=== PATIENT | female | born 1935 | race Caucasian/White ===

== ENCOUNTER 2018-02-24 06:58 | Outpatient (CLI) | payer OTHER ==
[~2018-02-24 06:58] MED LIST: FLONASE16 GM NS; ZANTAC300 MG PO
== END 2018-02-24 07:08 | disposition home or self-care (01) ==
LOC: LAB 06:58
DX: D50.0 Iron deficiency anemia secondary to blood loss (chronic) (principal); E78.2 Mixed hyperlipidemia; N39.0 Urinary tract infection, site not specified; Z13.29 Encounter for screening for other suspected endocrine disorder

== ENCOUNTER 2018-09-06 07:20 | Outpatient (CLI) | payer OTHER | END 2018-09-06 07:35 | disposition home or self-care (01) | LOC: LAB 07:20 | DX: D50.0 Iron deficiency anemia secondary to blood loss (chronic) (principal); E78.2 Mixed hyperlipidemia; N39.0 Urinary tract infection, site not specified; E03.8 Other specified hypothyroidism; Z80.8 Family history of malignant neoplasm of other organs or systems; R97.8 Other abnormal tumor markers; J80 Acute respiratory distress syndrome ==